=== PATIENT | female | born 1980 | race Caucasian/White ===

== ENCOUNTER 2017-11-06 07:31 | Emergency (ER) | payer MEDICARE, MEDICAID ==
[~2017-11-06] VITALS: Ht 1637.4 cm; Wt 125.0 kg
[2017-11-06] MEDS ORDERED: morphine 2 MG/ML inj. syringe IM ONE (08:30)
[2017-11-06] MEDS ORDERED: morphine 4 MG/ML inj SYRINge IM ONE (09:35)
[2017-11-06 09:42] LABS: URINE HCG NEGATIVE (NEG)
[2017-11-06] MEDS ORDERED: orphenadrine citrate 60mg/2ml inj. IM ONE (11:00)
[2017-11-06 11:41] VITALS: BP 126/72
== END 2017-11-06 13:22 | disposition home or self-care (01) ==
LOC: ER 07:33 → EDBD 07:33 → ER 13:22
DX: M25.551 Pain in right hip (principal); Z88.0 Allergy status to penicillin; Z88.5 Allergy status to narcotic agent; Z88.8 Allergy status to other drugs, medicaments and biological substances; Z86.73 Personal history of transient ischemic attack (TIA), and cerebral infarction without residual deficits; Z95.0 Presence of cardiac pacemaker
CPT/HCPCS: 73502; 81025; 96372; 99285; J2270; J2360